=== PATIENT | female | born 1985 | race Caucasian/White ===

== ENCOUNTER 2018-09-29 20:03 | Inpatient (IN) | payer MEDICAID ==
[~2018-09-29] VITALS: Ht 162.6 cm; Wt 101.6 kg
[2018-09-29 20:31] VITALS: Ht 162.6 cm; Wt 101.6 kg
[2018-09-29 22:40] LABS: microscopic required? YES; urine erythrocyte 3+ (NEGATIVE)
[2018-09-29 22:56] LABS: BASOPHIL % 0.3 % (0-2); PLATELET COUNT 259 x10^3mcL (130-400)
[2018-09-30 01:03] LABS: T3 TOTAL 1.18 ng/mL
[2018-09-30 01:21] VITALS: BP 136/89
[2018-09-30 01:42] LABS: FREE T4 0.93 ng/dL (0.76-1.46); FREE THYROXINE INDEX 2.7 ug/dL (1.4-4.5); T4(THYROXINE) 8.5 ug/dL (4.7-13.3)
[2018-09-30 01:49] LABS: PHOSPHOROUS 3.6 mg/dL (2.5-4.9)
[2018-09-30 01:57] LABS: CHOLESTEROL/HDL RATIO 2.7
[2018-09-30 04:57] VITALS: BP 116/69
[2018-09-30 06:18] VITALS: BP 113/82
[2018-09-30 09:13] VITALS: BP 120/71
[2018-09-30 13:39] LABS: ALBUMIN 3.4 g/dL (3.4-5.0); ALKALINE PHOSPHATASE 23 U/L (46-116); ALT/SGPT 30 U/L (14-59); AST/SGOT 14 U/L (15-37); BILIRUBIN TOTAL 0.6 mg/dL (0.20-1.00); CALCIUM 8.6 mg/dL (8.5-10.1); CARBON DIOXIDE 25.5 mmol/L (21-32); CHLORIDE SERUM 106 mmol/L (98-107); CREATININE SERUM 0.6 mg/dL (0.6-1.0); GFR1 > 60 mL/min; GLUCOSE SERUM 123 mg/dL (74-106); SODIUM SERUM 139 mmol/L (136-145); TOTAL PROTEIN, SERUM 6.6 g/dL (6.4-8.2)
[2018-09-30 16:51] VITALS: BP 112/62
[2018-09-30 21:16] VITALS: BP 101/49
[2018-09-30 23:22] LABS: AMPHETAMINE QUAL UR NONE DETECTED (See below)
[2018-10-01 05:58] VITALS: BP 107/55
[2018-10-01 06:26] LABS: BASOPHIL % 0.2 % (0-2); PLATELET COUNT 163 x10^3mcL (130-400); RED CELL DISTRIBUTION WIDTH 12.9 % (11.5-14.5)
[2018-10-01 06:27] LABS: CALCIUM 8.3 mg/dL (8.5-10.1); CARBON DIOXIDE 26.2 mmol/L (21-32); CHLORIDE SERUM 107 mmol/L (98-107); CREATININE SERUM 0.5 mg/dL (0.6-1.0); GFR1 > 60 mL/min; GLUCOSE SERUM 98 mg/dL (74-106); POTASSIUM SERUM 3.5 mmol/L (3.5-5.1); SODIUM SERUM 141 mmol/L (136-145)
[2018-10-01] MEDS ORDERED: NORCO1 TA1 PO (07:50)
[2018-10-01] MEDS ORDERED: TESSALON PERLE100 MG PO (07:51)
[2018-10-01 08:05] VITALS: BP 116/71
[2018-10-01 11:57] VITALS: BP 112/70
[2018-10-01 12:24] VITALS: BP 112/70
== END 2018-10-01 13:03 | disposition home or self-care (01) | DRG 545 ==
LOC: ED 20:03 → MU 09-30 00:08
PROVIDERS: Emergency Medicine; Family Medicine; Obstetrics & Gynecology; ADMIT Internal Medicine
PROC: 10T20ZZ Resection of Products of Conception, Ectopic, Open Approach (ICD-10-PCS; principal; 2018-09-30 06:30)
DX: O00.102 Left tubal pregnancy without intrauterine pregnancy (principal); I10 Essential (primary) hypertension; N83.201 Unspecified ovarian cyst, right side; N83.202 Unspecified ovarian cyst, left side
CPT/HCPCS: 83880; 84439; 87491; 87591; J0330; J0690; J1170; J2250; J2270; J2405; J2704; J3010; J3490; J7030; J7120